=== PATIENT | male | born 1980 | race Caucasian/White ===

== ENCOUNTER 2016-11-30 14:22 | Emergency (ER) | payer OTHER | END 2016-11-30 15:15 | disposition home or self-care (01) | LOC: ER1 14:22 | DX: S62.316A Displaced fracture of base of fifth metacarpal bone, right hand, initial encounter for closed fracture (principal); S60.221A Contusion of right hand, initial encounter; I10 Essential (primary) hypertension; F17.210 Nicotine dependence, cigarettes, uncomplicated; W51.XXXA Accidental striking against or bumped into by another person, initial encounter; Y93.89 Activity, other specified; Y92.009 Unspecified place in unspecified non-institutional (private) residence as the place of occurrence of the external cause | CPT/HCPCS: 73130; 99283 ==

== ENCOUNTER 2021-01-04 02:48 | Emergency (ER) | payer OTHER ==
[~2021-01-04 02:48] MED LIST: BACTRIM DS TAB1 EACH PO; BACTROBAN NASAL1 G1; IBU800 MG PO; IBUPROFEN600 MG PO; LODINE CAP 300300 MG PO; NAPROSYN500 MG PO; NORCO 5-325 TA1 EACH PO
[2021-01-04 03:15] LABS: HEMOGLOBIN 14.5 gm/dl (14.0-17.5); RED BLOOD COUNT 4.62 M/UL (4.20-5.50); WHITE BLOOD COUNT 7.5 K/UL (4.5-11.0)
[2021-01-04 03:39] LABS: BUN/CREATININE RATIO 9 (0-10)
== END 2021-01-04 05:21 ==
LOC: ER1 02:48
PROVIDERS: Physician Assistant Medical
DX: R07.89 Other chest pain (principal); E87.6 Hypokalemia; I25.2 Old myocardial infarction; E78.5 Hyperlipidemia, unspecified; I10 Essential (primary) hypertension; J44.9 Chronic obstructive pulmonary disease, unspecified; F17.210 Nicotine dependence, cigarettes, uncomplicated; Z79.01 Long term (current) use of anticoagulants
CPT/HCPCS: 71045; 80053; 82550; 82553; 83874; 83880; 84484; 85025; 93005; 99285

== ENCOUNTER 2021-05-20 11:19 | Emergency (ER) | payer OTHER ==
[2021-05-20 11:53] LABS: HEMOGLOBIN 14.5 gm/dl (14.0-17.5); RED BLOOD COUNT 4.62 M/UL (4.20-5.50); WHITE BLOOD COUNT 17.2 K/UL (4.5-11.0)
[2021-05-20 12:19] LABS: BUN/CREATININE RATIO 17 (0-10)
== END 2021-05-20 12:55 | disposition left against medical advice (07) ==
LOC: ER1 11:19
PROVIDERS: Emergency Medicine
DX: R07.9 Chest pain, unspecified (principal); N17.9 Acute kidney failure, unspecified; F15.10 Other stimulant abuse, uncomplicated; F17.200 Nicotine dependence, unspecified, uncomplicated
CPT/HCPCS: 71045; 80053; 82550; 82553; 83605; 83690; 83735; 83874; 84484; 85025; 85379; 93005; 99285; G0480; J7120

== ENCOUNTER 2021-08-25 05:22 | Emergency (ER) | payer OTHER ==
[2021-08-25 06:21] LABS: HEMOGLOBIN 15.3 gm/dl (14.0-17.5); RED BLOOD COUNT 5.1 M/UL (4.20-5.50); WHITE BLOOD COUNT 17.6 K/UL (4.5-11.0)
[2021-08-25] MEDS ORDERED: KEPPRA 500 MG500 MG GT (06:37)
[2021-08-25 06:44] LABS: BUN/CREATININE RATIO 15 (0-10)
== END 2021-08-25 07:10 | disposition home or self-care (01) ==
LOC: ER1 05:22
PROVIDERS: Family Medicine
DX: G40.909 Epilepsy, unspecified, not intractable, without status epilepticus (principal); F19.10 Other psychoactive substance abuse, uncomplicated; F17.200 Nicotine dependence, unspecified, uncomplicated
CPT/HCPCS: 80053; 82550; 82553; 83874; 84484; 85025; 93005; 96374; 96375; 99284; J1953; J2060

== ENCOUNTER 2021-10-15 06:51 | Emergency (ER) | payer OTHER ==
[~2021-10-15 06:51] MED LIST changes: +KEPPRA 500 MG500 MG GT
== END 2021-10-15 10:12 | disposition home or self-care (01) ==
LOC: ER1 06:51
DX: S62.614A Displaced fracture of proximal phalanx of right ring finger, initial encounter for closed fracture (principal); F17.200 Nicotine dependence, unspecified, uncomplicated; X58.XXXA Exposure to other specified factors, initial encounter; Y93.9 Activity, unspecified; Y92.009 Unspecified place in unspecified non-institutional (private) residence as the place of occurrence of the external cause
CPT/HCPCS: 26742; 26755; 73130; 99283